=== PATIENT | female | born 1980 | race American Indian/Alaskan Native ===

== ENCOUNTER 2022-05-19 15:47 | Emergency (ER) | payer SELFPAY ==
[2022-05-19 16:08] VITALS: BP 133/89
[2022-05-19] MEDS ORDERED: ASPIRIN 325 MG TAB PO ONE (16:08)
--- NOTE | 2022-05-19 16:41 | XRay Report ---
CHEST 2 VIEWS INDICATION / CLINICAL INFORMATION: chest pain. COMPARISON: None available. FINDINGS: SUPPORT DEVICES: None. HEART / MEDIASTINUM: No significant abnormality. LUNGS / PLEURA: No significant pulmonary or pleural abnormality. No pneumothorax. ADDITIONAL FINDINGS: No significant additional findings. IMPRESSION: 1. No acute findings. Signer Name: Yeimi Hadley MD Signed: 05/19/2022 4:37 PM Workstation Name: [id number]
[2022-05-19 17:15] LABS: Basophils % (Auto) 0.4 % (0.0-1.8); Eosinophils # (Auto) 0.2 K/mm3 (0.0-0.4); Eosinophils % (Auto) 2.7 % (0.0-4.3); Hematocrit 37.6 % (30.3-42.9); Lymphocytes # (Auto) 2.3 K/mm3 (1.2-5.4); Lymphocytes % (Auto) 41.4 % (13.4-35.0); Mean Corpuscular HGB Conc 32 % (30-34); Mean Corpuscular Volume 83 fl (79-97); Monocytes # (Auto) 0.3 K/mm3 (0.0-0.8); Monocytes % (Auto) 5.7 % (0.0-7.3); Platelet Count 267 K/mm3 (140-440); Red Blood Count 4.53 M/mm3 (3.65-5.03); Red Cell Distribution Width 15.3 % (13.2-15.2)
[2022-05-19 17:43] LABS: Alanine Aminotransferase 12 units/L (7-56); Albumin 4.2 g/dL (3.9-5); Blood Urea Nitrogen 7 mg/dL (7-17); Calcium 9.4 mg/dL (8.4-10.2); Hemolysis Index 2
[2022-05-19 17:49] LABS: BUN/Creatinine Ratio 10
[2022-05-19] MEDS ORDERED: ASPIRIN 81 MG TAB CHEW ONE (20:16)
[2022-05-19] MEDS ORDERED: KETOROLAC 30 MG/1 ML INJ IV ONE (21:01)
[2022-05-19] MEDS ORDERED: traMADol 50 MG TAB PO ONE (21:01)
--- NOTE | 2022-05-19 21:09 | Emergency Department Report ---
ED Chest Pain HPI - General Chief Complaint: Chest Pain Stated Complaint: LEFT ARM PAIN AND LIGHT CHEST PAIN Time Seen by Provider: 05/19/22 20:01 Source: patient Mode of arrival: Ambulatory Limitations: No Limitations - History of Present Illness Initial Comments: 41-year-old female with a history of prediabetes and migraines presents to the hospital complaining of left neck, shoulder, and left arm strain x1 week. Patient woke up with the pain symptoms started to worsen and radiated to left upper chest today so she came to be evaluated. Pain is constant, worse with movement and palpation. Not alleviated by [id number] Aleve. Patient den ies associated symptoms including shortness of breath, nausea, vomiting, diaphoresis, calf tenderness, leg edema, history of PE/DVT. Patient is right- hand dominant and denies any recent exercise or heavy lifting Severity scale (0 -10): 5 - Related Data Previous Rx's Medication Instructions Recorded Last Taken Type Naproxen 500 mg PO BID PRN #20 tab 05/19/22 Unknown Rx traMADoL [Ultram 50 MG tab] 50 mg PO Q6HR PRN #15 tablet 05/19/22 Unknown Rx Allergies Allergy/AdvReac Type Severity Reaction Status Date / Time No Known Allergies Allergy Verified 05/19/22 20:19 Heart Score - HEART Score History: Slightly suspicious EKG: Normal Age: < 45 Risk factors: 1-2 risk factors Troponin: < normal limit HEART Score: 1 - EKG Read Time Time EKG Completed: 16:02 EKG Read Time: 16:13 ED Review of Systems ROS: Stated complaint: LEFT ARM PAIN AND LIGHT CHEST PAIN Other details as noted in HPI Comment: All other systems reviewed and negative ED Past Medical Hx - Past Medical History Previous Medical History?: Yes Hx Diabetes: Yes (pre-diabetes) - Surgical History Past Surgical History?: Yes Additional Surgical History: x 2 - Medications Home Medications: Home Medications Medication Instructions Recorded Confirmed Last Taken Type Naproxen 500 mg PO BID PRN #20 tab 05/19/22 Unknown Rx traMADoL [Ultram 50 MG tab] 50 mg PO Q6HR PRN #15 tablet 05/19/22 Unknown Rx ED Physical Exam - General Limitations: No Limitations - Other Other exam information: General: No acute distress Head: Atraumatic Eyes: normal appearance ENT: Moist mucous membranes Neck: Normal appearance, no midline tenderness Chest: Clear to auscultation bilaterally. Tenderness to left-sided trapezius muscle from the neck down to the shoulder and upper back. CV: Regular rate and rhythm Abdomen: Soft, normal bowel sounds, nontender, nondistended, no rebound or gu arding Back: Normal inspection Extremity: Normal inspection, full range of motion, no calf tenderness or leg edema, tenderness to biceps and triceps area without warmth, erythema, or swelling. Pain to left trapezius with left shoulder abduction Neuro: Alert O x 3, no facial asymmetry, speech clear, no gross motor sensory deficit Psych: Appropriate behavior Skin: No rash ED Course Vital Signs 05/19/22 16:07 Temperature 98.9 F Pulse Rate 82 Respiratory 20 Rate Blood Pressure 133/89 [Right] O2 Sat by Pulse 98 Oximetry DANIELLA score - Daniella Score Age > 65: (0) No Aspirin use within the Past 7 Days: (0) No 3 or more CAD Risk Factors: (0) No 2 or more Angina events in past 24 hrs: (0) No Known CAD with more than 50% Stenosis: (0) No Elevated Cardiac Markers: (0) No ST Deviation Greater than 0.5mm: (0) No DANIELLA Score: 0 ED Medical Decision Making - Lab Data Result diagrams: 05/19/22 16:53 05/19/22 16:53 Lab Results 05/19/22 05/19/22 05/19/22 Range/Units 16:53 16:53 20:04 WBC 5.7 (4.5-11.0) K/mm3 RBC 4.53 (3.65-5.03) M/mm3 Hgb 12.0 (10.1-14.3) gm/dl Hct 37.6 (30.3-42.9) % MCV 83 (79-97) fl MCH 27 L (28-32) pg MCHC 32 (30-34) % RDW 15.3 H (13.2-15.2) % Plt Count 267 (140-440) K/mm3 Lymph % (Auto) 41.4 H (13.4-35.0) % [place] % (Auto) 5.7 (0.0-7.3) % Eos % (Auto) 2.7 (0.0-4.3) % Baso % (Auto) 0.4 (0.0-1.8) % Lymph # (Auto) 2.3 (1.2-5.4) K/mm3 [place] # (Auto) 0.3 (0.0-0.8) K/mm3 Eos # (Auto) 0.2 (0.0-0.4) K/mm3 Baso # (Auto) 0.0 (0.0-0.1) K/mm3 Seg Neutrophils % 49.8 (40.0-70.0) % Seg Neutrophils # 2.8 (1.8-7.7) K/mm3 Sodium 141 (137-145) mmol/L Potassium 4.1 (3.6-5.0) mmol/L Chloride 104.1 (98-107) mmol/L Carbon Dioxide 27 (22-30) mmol/L Anion Gap 14 mmol/L BUN 7 (7-17) mg/dL Creatinine 0.7 (0.6-1.2) mg/dL Estimated GFR > 60 ml/min BUN/Creatinine Ratio 10 % Glucose 108 H (65-100) mg/dL Calcium 9.4 (8.4-10.2) mg/dL Total Bilirubin 0.20 (0.1-1.2) mg/dL AST 15 (5-40) units/L ALT 12 (7-56) units/L Alkaline Phosphatase 83 (35-129) units/L Troponin T < 0.010 < 0.010 (0.00-0.029) ng/mL Total Protein 7.1 (6.3-8.2) g/dL Albumin 4.2 (3.9-5) g/dL Albumin/Globulin Ratio 1.4 % - EKG Data -: EKG Interpreted by Id EKG shows normal: sinus rhythm, ST-T waves (No STEMI) Rate: normal - Radiology Data Radiology results: report reviewed CHEST 2 VIEWS INDICATION / CLINICAL INFORMATION: chest pain. COMPARISON: None available. FINDINGS: SUPPORT DEVICES: None. HEART / MEDIASTINUM: No significant abnormality. LUNGS / PLEURA: No significant pulmonary or pleural abnormality. No pneumothorax. ADDITIONAL FINDINGS: No significant additional findings. IMPRESSION: 1. No acute findings. - Medical Decision Making 41-year-old female presents to the hospital muscle skeletal pain that is reproducible with palpation and movement. Pain is at the left-sided trapezius and left upper arm. Patient has a heart score of 1 with obesity as her major risk factor. EKG normal sinus with negative troponin x2 and negative chest x- ray and PERC score of 0. Patient will be discharged with NSAIDs and tramadol as needed for pain. Outpatient follow-up encouraged Critical Care Time: No Critical care attestation.: If time is entered above; I have spent that time in minutes in the direct care of this critically ill patient, excluding procedure time. ED Disposition Clinical Impression: Trapezius strain, Left upper arm pain Disposition: HOME / SELF CARE / HOMELESS Is pt being admited?: No Condition: Stable Instructions: Thoracic Strain, [id number], Muscle Strain, [id number] Additional Instructions: Take the medication as prescribed. Follow-up with your doctor or doctor/clinic provided. Return if symptoms worsen as indicated by your discharge instructions. Prescriptions: Naproxen 500 mg PO BID PRN #20 tab PRN Reason: Pain , Severe (7-10) traMADoL [Ultram 50 MG tab] 50 mg PO Q6HR PRN #15 tablet PRN Reason: Pain Referrals: KINA RAMIREZ MD [Staff Physician] - 3-5 Days (Primary care doctor) [facility] [Provider Group] - 3-5 Days (Primary care clinic) Time of Disposition: 21:15
--- NOTE | 2022-05-21 13:08 | Electrocardiograph Report ---
[facility] Test Date: 2022-05-19 Test Time: 16:02:18 Pat Name: RIVKA HOYT Department: Room: Gender: F Manager It Training: JOHN : 1980 Requested By: MEENAKSHI CAAL Order Number: [id number] Reading MD: Dylan Major Measurements Intervals [place] Rate: 82 P: 45 WI: 196 QRS: 30 QRSD: 80 T: 30 QT: 380 QTc: 443 Interpretive Statements Sinus rhythm Low voltage, precordial leads No previous ECG available for comparison Electronically Signed On 05-21-2022 13:08:23 EDT by Dylan Major
== END 2022-05-19 22:00 | disposition home or self-care (01) ==
LOC: ED 15:47
DX: S46.812A Strain of other muscles, fascia and tendons at shoulder and upper arm level, left arm, initial encounter (principal); M79.622 Pain in left upper arm; X58.XXXA Exposure to other specified factors, initial encounter; Y93.89 Activity, other specified; Y92.89 Other specified places as the place of occurrence of the external cause; Y99.8 Other external cause status
CPT/HCPCS: 36415; 71046; 80053; 84484; 85025; 93005; 96374; 99284; J1885